=== PATIENT | female | born 1990 | race Caucasian/White ===

== ENCOUNTER → 2020-06-30 10:03 | Outpatient (CLI) | payer OTHER, SELFPAY ==
[2020-07-06 20:14] LABS: HPV Reflexed? NOT INDICATED
== END ==
PROVIDERS: Visit Provider Obstetrics & Gynecology
DX: Z12.4 Encounter for screening for malignant neoplasm of cervix (principal)
CPT/HCPCS: 88175; G0145

== ENCOUNTER → 2020-07-06 09:15 | Outpatient (CLI) | payer OTHER, SELFPAY ==
[2020-07-06 10:05] LABS: Absolute Neutrophil Count 2.2 X10^3/uL (2.0-7.7); Basophil# 0.03 X10^3/uL; Basophil% 0.7 % (0-1); Eosinophil# 0.21 X10^3/uL; Eosinophils% 4.7 % (0-5); Hematocrit 40.2 % (37-47); Lymphocyte % 37.9 % (19-41); Mean Corp Hgb Conc 32.3 g/dL (32-36); Mean Corpuscular Hgb 28.1 pg (27.0-32.0); Mean Platelet Vol. 9.8 fl (6.2-12.0); Monocyte# 0.39 X10^3/uL; Monocyte% 8.7 % (0-10); NRBC Flagged by Analyzer 0 % (0-5); Neutrophil # 2.16 X10^3/uL (2.7-7.7); Platelet Count 251 K/mm3 (150-450); RBC Distribution Width CV 12.2 % (11.6-14.6); RBC Distribution Width SD 39.3 fl (35.1-43.9); Red Blood Count 4.62 M/mm3 (4.2-5.4); White Blood Count 4.5 K/mm3 (4.4-11.0)
[2020-07-06 10:32] LABS: Vitamin B12 501 pg/mL (211-911); Vitamin D,25 Hydroxy 40.3 ng/mL
[2020-07-06 11:17] LABS: Glucose 83 mg/dL (74-106)
[2020-07-06 11:18] LABS: ALB/GLOB Ratio 0.9 RATIO (0.9-2.4); AST(SGOT) 8 U/L (15-37); Alanine Aminotransfer ALT/SGPT 18 U/L (13-56); Albumin, Serum 3.5 g/dL (3.2-5.0); Alkaline Phosphatase 63 U/L (45-117); Anion Gap 5 (5-15); BUN 12 mg/dL (7-18); Calcium,Total 8.8 mg/dL (8.5-10.1); Chloride 109 mmol/L (98-107); Globulin 3.8 g/dL (2.2-4.2); Protein, Total 7.3 g/dL (6.4-8.2); Sodium Level 141 mmol/L (136-145); Thyroid Stim Hormone (TSH) 0.93 uIU/mL (0.358-3.74)
[2020-07-06 11:20] LABS: BUN/Creat Ratio 15.3 RATIO (10-20); Creatinine, Serum 0.78 mg/dL (0.55-1.02); EST Glomerular Filtration Rate 92 mL/min (>60); Est Glom Filt Rate - Afr Amer 111 mL/min (>60)
== END ==
PROVIDERS: PCP Family Medicine; Referring Provider Family Medicine; Visit Provider Family Medicine
DX: R53.83 Other fatigue (principal)
CPT/HCPCS: 36415; 80053; 82306; 82607; 82746; 84443; 85025

== ENCOUNTER → 2021-02-21 10:44 | Outpatient (CLI) | payer OTHER, SELFPAY ==
[2021-02-21 12:07] LABS: Color, Urine Yellow (Yellow); Glucose, Dipstick Normal (Normal); Ketone-Dipstick Negative (Negative); Leukocyte Esterase-Dipstick Negative /ul (Negative); Nitrite-Dipstick Negative (Negative); Occult Blood-Urine Negative /ul (Negative); Protein-Dipstick Negative (Negative); Urine Bilirubin Dipstick Negative (Negative); Urine Clarity Clear (Clear); Urine Urobilinogen Normal (Normal); Urine pH 6.5 (5.0 - 8.0)
[2021-02-21 12:09] LABS: Absolute Lymphocyte Count 0.96 X10^3/uL (0.83-4.51); Absolute Neutrophil Count 4.3 X10^3/uL (2.0-7.7); Basophil# 0.04 X10^3/uL; Basophil% 0.7 % (0-1); Eosinophil# 0.21 X10^3/uL; Eosinophils% 3.4 % (0-5); Hematocrit 40.1 % (37-47); Hemoglobin 12.9 g/dL (12.0-15.0); Lymphocyte # 0.96 X10^3/ul (0.83-4.51); Lymphocyte % 15.6 % (19-41); Mean Corp Hgb Conc 32.2 g/dL (32-36); Mean Corpuscular Hgb 27.2 pg (27.0-32.0); Mean Corpuscular Volume 84.6 fL (81-99); Monocyte# 0.66 X10^3/uL; Monocyte% 10.7 % (0-10); NRBC Flagged by Analyzer 0 % (0-5); Neutrophil # 4.25 X10^3/uL (2.7-7.7); Neutrophil % 69.3 % (47-70); Platelet Count 268 K/mm3 (150-450); RBC Distribution Width CV 12.7 % (11.6-14.6); RBC Distribution Width SD 39.1 fl (35.1-43.9); Red Blood Count 4.74 M/mm3 (4.2-5.4); White Blood Count 6.1 K/mm3 (4.4-11.0)
[2021-02-21 12:20] LABS: Amphetamine Urine VISTA NEGATIVE (<1000 ng/mL); Barbiturate Urine VISTA NEGATIVE (< 200 ng/mL); Benzodiazepine Urine VISTA NEGATIVE (< 200 ng/mL); Cocaine Urine VISTA NEGATIVE (< 300 ng/mL); Ecstacy Urine VISTA NEGATIVE (< 500 ng/mL); Methadone Urine VISTA NEGATIVE (< 300 ng/mL); PCP Urine VISTA NEGATIVE (< 25 ng/mL); THC Urine VISTA NEGATIVE (< 50 ng/mL); Vista UDS pH Range 6
[2021-02-21 12:33] LABS: Thyroid Stim Hormone (TSH) 0.83 uIU/mL (0.358-3.74)
[2021-02-21 13:01] LABS: HIV - WCH Non-Reactive (Nonreactive); Hepatitis B Surface Antigen Non-Reactive (Nonreactive); Hepatitis C Antibody Non-Reactive (Nonreactive); Rubella IgG Reactive (Nonreactive); Syphilis Antibodies Non-reactive
[2021-02-23 03:07] LABS: Chlamydia By Nucleic Acid AMP Negative (Negative)
[2021-02-23 13:22] LABS: Gonococcus By Nucleic Acid AMP Negative (Negative)
== END ==
PROVIDERS: PCP Family Medicine; Visit Provider Obstetrics & Gynecology
DX: Z34.81 Encounter for supervision of other normal pregnancy, first trimester (principal)
CPT/HCPCS: 36415; 80307; 81002; 84443; 85025; 86703; 86762; 86780; 86803; 87340; 87491; 87591

== ENCOUNTER → 2021-03-22 15:37 | Outpatient (CLI) | payer OTHER, SELFPAY | PROVIDERS: PCP Family Medicine; Visit Provider Obstetrics & Gynecology | DX: Z34.81 Encounter for supervision of other normal pregnancy, first trimester (principal); Z83.49 Family history of other endocrine, nutritional and metabolic diseases | CPT/HCPCS: 36415; 81220 ==

== ENCOUNTER → 2021-07-26 15:08 | Outpatient (CLI) | payer OTHER, SELFPAY ==
[2021-07-26 15:27] LABS: Hematocrit 30.9 % (37-47); Hemoglobin 9.8 g/dL (12.0-15.0); Mean Corp Hgb Conc 31.7 g/dL (32-36); Mean Corpuscular Hgb 26.8 pg (27.0-32.0); Mean Corpuscular Volume 84.7 fL (81-99); Mean Platelet Vol. 10.1 fl (6.2-12.0); Platelet Count 220 K/mm3 (150-450); RBC Distribution Width CV 12.9 % (11.6-14.6); RBC Distribution Width SD 39.1 fl (35.1-43.9); Red Blood Count 3.65 M/mm3 (4.2-5.4); White Blood Count 7.4 K/mm3 (4.4-11.0)
[2021-07-26 16:02] LABS: Glucose Challenge Gest 1H 50g 121 mg/dL (70-140)
[2021-07-28 10:35] LABS: Ferritin 5 ng/mL (8-252)
== END ==
PROVIDERS: PCP Family Medicine; Visit Provider Obstetrics & Gynecology
DX: Z34.83 Encounter for supervision of other normal pregnancy, third trimester (principal); D64.9 Anemia, unspecified
CPT/HCPCS: 36415; 82728; 82950; 85027

== ENCOUNTER → 2021-08-23 16:36 | Outpatient (CLI) | payer OTHER, SELFPAY ==
[2021-08-23 17:17] LABS: Hematocrit 30.8 % (37-47); Hemoglobin 9.5 g/dL (12.0-15.0)
[2021-08-23 18:14] LABS: Ferritin 5 ng/mL (8-252)
[2021-08-24 08:42] LABS: Syphilis Antibodies Non-reactive
== END ==
PROVIDERS: PCP Family Medicine; Visit Provider Obstetrics & Gynecology
DX: Z34.83 Encounter for supervision of other normal pregnancy, third trimester (principal)
CPT/HCPCS: 36415; 82728; 85014; 85018; 86780

== ENCOUNTER 2021-09-16 16:30 | Outpatient (CLI) | payer OTHER, SELFPAY | END 2021-09-16 23:59 | disposition short-term general hospital (02) | LOC: LABSPEC 16:32 | PROVIDERS: PCP Family Medicine; Visit Provider Obstetrics & Gynecology | DX: Z03.818 Encounter for observation for suspected exposure to other biological agents ruled out (principal) | CPT/HCPCS: 87081; 87635; U0003; U0005 ==

== ENCOUNTER 2021-09-23 05:00 | Inpatient (IN) | payer OTHER, SELFPAY ==
[2021-09-23] VITALS (15 sets, daily range): BP systolic 87–106; BP diastolic 43–68; PULSE 71–94; RESP 12–20; TEMP 35.9–37.2; O2SAT 96–100; BMI 31.6
[2021-09-23] MEDS: Lactated Ringers 1,000 ML 999 ML IV (05:40)
[2021-09-23 05:58] LABS: Absolute Lymphocyte Count 1.87 X10^3/uL (0.83-4.51); Absolute Neutrophil Count 5.8 X10^3/uL (2.0-7.7); Basophil# 0.04 X10^3/uL; Basophil% 0.5 % (0-1); Eosinophil# 0.29 X10^3/uL; Eosinophils% 3.4 % (0-5); Hematocrit 32.7 % (37-47); Hemoglobin 10.4 g/dL (12.0-15.0); Lymphocyte # 1.87 X10^3/ul (0.83-4.51); Lymphocyte % 21.7 % (19-41); Mean Corp Hgb Conc 31.8 g/dL (32-36); Mean Corpuscular Hgb 26.1 pg (27.0-32.0); Mean Corpuscular Volume 82.2 fL (81-99); Monocyte# 0.61 X10^3/uL; Monocyte% 7.1 % (0-10); NRBC Flagged by Analyzer 0 % (0-5); Neutrophil # 5.77 X10^3/uL (2.7-7.7); Neutrophil % 66.8 % (47-70); Platelet Count 208 K/mm3 (150-450); RBC Distribution Width SD 47.4 fl (35.1-43.9); Red Blood Count 3.98 M/mm3 (4.2-5.4); White Blood Count 8.6 K/mm3 (4.4-11.0)
[2021-09-23] MEDS: Acetaminophen 500 MG Tablet 1000 MG PO ×3 (06:24→18:05)
[2021-09-23] MEDS: Lactated Ringers 1,000 ML 150 ML IV (06:41)
[2021-09-23] MEDS: Sodium Citrate/Citric Acid 30 ML UDC PO (07:18)
--- NOTE | 2021-09-23 07:30 | PCM.HP.OB ---
HPI - General General Date of Admission: 09/23/21 Date of Service: 09/23/21 HPI Narrative DEVORA GOLDEN, is a 31 F who presents for scheduled repeat section at 37 3/7 weeks gestation for hx prior section with T-incision. Maternal Data Information SEAN Calculator Estimated Delivery Date Method Current WG Current Estimate 10/11/21 LMP (Certain) 38w 4d PFSH PFSH Medical History (Updated 10/01/21 @ 02:[address] Thelma Pineda MD) Anxiety Asthma Bicornuate uterus Cystic fibrosis carrier Seasonal allergies Home Medications Proair Digihaler 1 dose MISCELLANEOUS PRN PRN 09/23/21 [History Last Taken 09/22/21 20:00] Zyrtec 10 mg PO DAILY 09/23/21 [History Last Taken Unknown] iron 18 mg PO DAILY 09/23/21 [History Last Taken Unknown] zhjjxrkm-yll-Ox-FA 1 tab PO DAILY 09/23/21 [History Last Taken 09/22/21 08:00] oxycodone 5 mg PO Q6H PRN 4 Days #16 tab 09/24/21 [Rx Last Taken Unknown] nystatin 1 applic TOPICAL BID 7 Days #30 g 09/25/21 [Rx Last Taken Unknown] Allergy/AdvReac Type Severity Reaction Status Date / Time No Known Allergies Allergy Verified 09/23/21 05:46 Family History (Updated 09/23/21 @ 07:[address] Thelam Pineda MD) Sister Cystic fibrosis Surgical History (Updated 09/23/21 @ 07:[address] Thelma Pineda MD) Previous section Social History Smoking Status: Never smoker History 2 Elective abortions Hx Para 1 Spontaneous abortions Hx # Term Pregnancies 1 Ectopic pregnancies Hx # Pregnancies Multiple births # of living children 1 Past Pregnancies Del. Date Name GA/Weeks Outcome Route Bth Weight Gen Labor Lgth Anesthesia Del Locatn Provider FOB Unknown Josep 38 live - full term 5lb 10oz Male 0 epidural Wood Kirill Delivery Date: breech, T-incision Thelma Polanco NST FHR Rate Baby A Baseline: 140 Vital Signs Vital Signs Vital Signs: 09/23/21 05:22 Temperature 97.9 F Temperature Source Temporal Pulse Rate 94 Respiratory Rate 16 Blood Pressure 106/67 Blood Pressure Mean 80 Blood Pressure Source Monitor Blood Pressure Position Semi-Fowlers Blood Pressure Location Left Arm Pulse Ox 98 Oxygen Delivery Method Room Air Weight Weight: 80.966 kg Body Mass Index (BMI) 31.6 Physical Exam Const alert, oriented x3 and no apparent distress HEENT normocephalic Resp normal respiratory effort, normal air movement and clear to auscultation bilaterally Cardio regular rate and regular rhythm GI normal to inspection, nondistended, normoactive bowel sounds, soft to palpation, non-tender and non-distended Inspection: gravid Labs Labs Labs: Blood Type O POSITIVE Antibody Screen NEGATIVE Hct 27.8 % (37-47) L Hgb 8.8 g/dL (12.0-15.0) L Syphilis Total Ab Non-reactive Rubella IgG Antibody Reactive (Nonreactive) Hep Bs Antigen Non-Reactive (Nonreactive) Neisseria gonorrhoeae DNA (JUAN CARLOS) Negative (Negative) HIV 1&2 Antibody Non-Reactive (Nonreactive) Glucose 1 Hr 50 gm 121 mg/dL (70-140) Rhogam given: No Assessment & Plan (1) 37 weeks gestation of : COMMENT: hx prior section with T incision PLAN: Proceed with repeat section Tubal sterilization as planned
[2021-09-23] MEDS: Cefazolin 2 GM in 0.9% Normal Saline 100 ML IV (07:37)
--- NOTE | 2021-09-23 08:00 | FALS_PTH ---
PATIENT: DEVORA GOLDEN LOC: [facility] U#:[id number] AGE/SX: 31/F ROOM: [facility]003 RE09/23/[address]: Dr. Thelma Pineda MD : 1990 BED: 1 DIS: 09/26/2021 SPEC #: [id number] RECD: 09/23/21 10:14 STATUS: MARTHA REFern #: [id number] SARA: 09/23/21 08:[address]: Thelma Story DEPT: SURGICAL PATHOLOGY RECD BY: Jane Tse ENTERED: 09/23/21 12:31 SP TYPE: FALL TUBES OTHR DR: Dr. Robert Olmedo MD Tissues: Fallopian tube Procedures: Surgery Specimen Level II HEADER OPERATION: Tubal ligation PRE-OP DIAGNOSIS: Sterilization TISSUE SUBMITTED: Fallopian tubes, suture in left tube MICROSCOPIC DIAGNOSIS Right fallopian tube, salpingectomy: Complete segment of fallopian tube with no pathologic change. Left fallopian tube, salpingectomy: Complete segment of fallopian tube. Benign paratubal cyst. AM:cain 09/26/2021 MICROSCOPIC DESCRIPTION Slides are reviewed. GROSS DESCRIPTION Received in fixative is one container labeled with the patient's name and designated bilateral fallopian tubes, left side stitch. The specimen consists of bilateral fallopian tubes including fimbrial ends. The right fallopian tube measures 9 cm in length and up to 1 cm in diameter and the left fallopian tube measures 7.5 cm in length and 1 cm in diameter. The left fallopian tube also shows a paratubal cyst measuring 1 cm in greatest dimension. Sections reveal unremarkable cut surfaces. Solution Consultant sections are submitted in two cassettes as follows: 1 ? right fallopian tube, 2 ? left fallopian tube and paratubal cyst. / SJ:cain 09/23/2021 TC:5 CPT: 26521 x2
--- NOTE | 2021-09-23 08:46 | EX.PCM.OBRPT ---
Assessment & Plan (1) 37 weeks gestation of : COMMENT: hx prior section with T incision (2) delivery delivered: Maternal Data Information SEAN Calculator Estimated Delivery Date Method Current WG Current Estimate 10/11/21 LMP (Certain) 37w 3d Details Operative Information Date of Procedure: 09/23/21 Pre-Operative Diagnosis: 37-3/7 weeks gestation History of prior section with T-incision Bicornuate uterus Tubal sterilization desired Post-Operative Diagnosis: 37-3/7 weeks gestation History of prior section with T-incision Bicornuate uterus Tubal sterilization desired Indications for : Repeat Elective and Previous Uterine Surgery (T-incision at prior section) Classification: Scheduled Procedure Type: low transverse risk compliance manager #1: Chriss Hein Type of Anesthesia: Spinal Anesthesiologist: Corby Olivares Antibiotic Given: Ancef 2 grams IV x1 Drain: Kovacs to straight drain Estimated Blood Loss: 900 mL Fluids Replaced: 800 mL Findings Description of Procedure: Indications: 31-year-old 2 para 1-0-0-1 admitted at 37-3/7 weeks gestational age for scheduled repeat section. History of prior section in setting of bicornuate uterus requiring a T-incision. She is counseled regarding procedural risks, benefits, indications and alternatives and opted to proceed. Procedure: The patient was brought to the operating room and spinal was performed. Spinal analgesia was administered and she was placed into dorsal supine position with left lateral tilt. The abdomen and perineum were prepped and the Kovacs catheter was placed. Patient was draped in sterile fashion and the spine was found to be adequate. A Pfannenstiel incision was made using the scalpel and brought down to incise the subcutaneous tissue rectus fascia at the midline. The fascial incision was extended laterally and cephalad sharply. Amari clamps were used to dissect the superior and inferior leaflets of the rectus fascia from the underlying rectus abdominis muscle. The rectus muscles were at the midline and peritoneum entered bluntly and a bladder blade placed into the abdominal cavity. The vesicouterine peritoneal fold was identified and incised with creation of a bladder flap. A hysterotomy was performed using the Metzenbaum scissors with amniotomy revealing clear fluid. The head was brought to the level of the hysterotomy and delivered and bulb suction of the mouth and nares was performed. A vigorous male infant delivered from the right horn of the uterus. The cord was doubly clamped and cut after 1 minute of life. The placenta was expressed from the uterus and exteriorized. The hysterotomy was repaired using 0 Vicryl running lock suture. Second indicating layer of horizontal mattress sutures were placed with good hemostasis. I proceeded with salpingectomy. The right tubal fimbria was identified and isolated. The mesosalpinx was transected from the tube using the LigaSure device. In similar fashion left salpingectomy was also performed. The uterus and adnexa a were returned to the abdomen. Peritoneum was reapproximated using 2-0 Vicryl. Rectus fascia was reapproximated using oh strata fix running suture. Subcutaneous tissue was reapproximated using 2-0 Vicryl. The skin was closed with 4-0 Monocryl by the SUPERVISING FILM OR VIDEOTAPE EDITOR under my supervision. Mepilex occlusive dressing was placed over the incision. The procedure was complete and the patient will be transferred to the recovery room. Sponge and needle counts are correct x2. Male infant, 7 pounds 3 ounces. Presentation: Positive for Vertex Amniotic Membrane Rupture Type: Artificial Amniotic Fluid Description: Clear Placental Delivery Description: Spontaneous Placenta Disposition: [facility] Cord Vessel Description: 3 Vessels Cord Entanglement: None Nuchal Cord Compression: Without compression A Gender: Male (1 minute): 7 (5 minute): 9 Delayed Cord Clamping: Yes Complications Risks of Surgery Discussed w/Patient: Bleeding, Anesthesia Risks, Infection, Permanency, Failure Rate of 1 to 2%, Injury to surrounding structure(s) including bowel and bladder and Availability of other non-permanent control options
[2021-09-23] MEDS: Oxytocin 30 units/NS 500 ml 30 UNITS/500 ML IV.SOLN 167 UNITS IV (09:20)
[2021-09-23] MEDS: Ketorolac 30 MG/ML Syringe IV ×3 (09:56→22:26)
[2021-09-23 10:15] LABS: Pathology Specimen OB SEE PATHOLOGY REPORT
[2021-09-23] MEDS: Lactated Ringers 1,000 ML 100 ML IV (12:07)
[2021-09-23] MEDS: 0.9% Saline Lock 10 ML Syringe IV (16:02)
[2021-09-24] MEDS: Acetaminophen 500 MG Tablet 1000 MG PO ×4 (00:15→18:49)
[2021-09-24 00:17] VITALS: BP 95/48; PULSE 81; RESP 16; TEMP 36.4
[2021-09-24 04:05] VITALS: BP 100/48; PULSE 82; RESP 18
[2021-09-24] MEDS: Ketorolac 30 MG/ML Syringe IV (04:08)
[2021-09-24 06:24] LABS: Hematocrit 27.8 % (37-47); Hemoglobin 8.8 g/dL (12.0-15.0); Mean Corp Hgb Conc 31.7 g/dL (32-36); Mean Platelet Vol. 10.9 fl (6.2-12.0); Platelet Count 194 K/mm3 (150-450); RBC Distribution Width CV 16.3 % (11.6-14.6); RBC Distribution Width SD 48.1 fl (35.1-43.9); Red Blood Count 3.39 M/mm3 (4.2-5.4); White Blood Count 10.6 K/mm3 (4.4-11.0)
[2021-09-24 08:20] VITALS: BP 111/63; PULSE 80; RESP 16; TEMP 36.8; O2SAT 97
--- NOTE | 2021-09-24 09:02 | PCM.PN.OB ---
Subjective Subjective Patient doing well. Able to now ambulate well. Voiding spontaneously. Baby is in special care nursery for respiratory distress. Per his RN they will try sustainable design consultant today and weaning his fluids, may need supplementation. Objective Data Objective Data Vital Signs: Vital Signs Temp Pulse Resp BP Pulse Ox 98.2 F 80 16 111/63 97 09/24/21 08:20 09/24/21 08:20 09/24/21 08:20 09/24/21 08:20 09/24/21 08:20 Oxygen Delivery Method Room Air Weight: 80.966 kg Body Mass Index (BMI) 31.6 Intake & Output: Intake and Output for Last 24 Hours 09/22/21 09/23/21 09/24/21 23:59 23:59 23:59 Intake Total 2932.83 / 2932.83 Output Total 1300 / 1300 450 / 450 Balance 1632.83 / 1632.83 -450 / -450 Lab / Micro Data Result Diagrams: 09/24/21 06:13 Labs: Laboratory Results - last 24 hr 09/24/21 06:13: WBC 10.6, RBC 3.39 L, Hgb 8.8 L, Hct 27.8 L, MCV 82.0, MCH 26.0 L, MCHC 31.7 L, RDW Std Deviation 48.1 H, RDW Coeff of Britney 16.3 H, Plt Count 194, MPV 10.9 Physical Exam Const alert, oriented x3 and no apparent distress HEENT normocephalic Head and Scalp: atraumatic Neck full ROM Resp normal respiratory effort Cardio regular rate GI normal to inspection, nondistended, normoactive bowel sounds GI Narrative: Uterus 2 cm below umbilicus. Dressing clean and dry. Back/Spine normal ROM Extremity normal to inspection Extremity Narrative: Minimal pedal edema Neuro no focal motor deficits and no sensory deficits noted Psych mental status grossly normal and affect normal Assessment & Plan (1) delivery delivered: PLAN: Postoperative day 1 status post repeat section and bilateral salpingectomy. Pain well controlled. Baby in special care. Acute blood loss anemia secondary to surgery. Iron supplement on discharge. Likely discharge home tomorrow as baby is in special care nursery. (2) Acute blood loss as cause of postoperative anemia:
--- NOTE | 2021-09-24 09:04 | DCINST_ITS ---
Discharge Instructions Diet Discharge Diet: No restrictions Activity Discharge Activity: Return to Normal Activity and May Shower May resume sexual activity in: 4-6 weeks Weight Bearing Status: Weight bearing as tolerated Lifting Restrictions: No greater than 25 pounds Dressing / Incision Call your doctor if your incision/area has: Continuous Slow Oozing, Sudden Increased Bleeding, Increased Pain/ Swelling, Increased Redness and Foul Smelling Discharge Call your doctor if you observe: Fever of 101 or Higher, Change in Color, I nability to urinate, Using more than 1 pad per hour, Shortness of breath, Dizziness, Swelling in the ankles, Chest pain and Calf discomfort Remove Dressing in: 1 week Cleanse incision/area with: Soap & Water Follow Up Care Please Follow Up With: Thelma Story MD When: 2-week post operative appointment and 6-week visit Test Results: Test results from this visit will be discussed in further detail at your follow-up appointment, if applicable. Discharge Plan Admission Admit Date/Time: 09/23/21 05:00 Primary Reason for Your Visit: Repeat section Attending Provider: Thelma Story Primary Care Provider: Robert Olmedo Discharge Orders/Prescriptions Prescriptions: New oxycodone 5 mg Tablet 5 mg PO Q6H PRN (Reason: pain) 4 Days Qty: 16 RF: 0 nystatin 100,000 unit/gram Ointment 1 applic topical BID 7 Days Qty: 30 RF: 0 Continued [id number]-pdz-Mq-FA 1 mg Tablet 1 tab PO DAILY RF: 0 iron 18 mg Tablet 18 mg PO DAILY RF: 0 Zyrtec 10 mg Capsule 10 mg PO DAILY RF: 0 Proair Digihaler 1 dose miscellaneous PRN PRN (Reason: Respiratory Distress) RF: 0 Referrals / Follow Up: Robert Olmedo MD [Primary Care Provider] -
[2021-09-24] MEDS: Ibuprofen 600 MG Tablet PO ×3 (10:13→23:05)
[2021-09-24] MEDS: Senna/Docusate Sodium 1 Tablet PO (10:14)
[2021-09-24] MEDS: Enoxaparin 40 MG/0.4 ML Syringe SC (10:15)
[2021-09-24] MEDS: Loratadine 10 MG Tablet PO (10:15)
[2021-09-24] MEDS: Prenatal Vits Tablet 1 TABLET PO (12:59)
[2021-09-24 14:13] VITALS: BP 100/71; PULSE 84; RESP 16; TEMP 36.5; O2SAT 100
[2021-09-24] MEDS: oxyCODONE 5 MG Tablet PO ×2 (14:49→19:05)
[2021-09-24] MEDS: Nystatin Ointment 1 APPLIC TOPICAL ×2 (15:07→23:07)
[2021-09-24 20:05] VITALS: BP 107/71; PULSE 80; RESP 16; TEMP 36.5
[2021-09-25] MEDS: oxyCODONE 5 MG Tablet PO ×3 (00:15→14:32)
[2021-09-25] MEDS: Acetaminophen 500 MG Tablet 1000 MG PO ×4 (01:29→19:16)
[2021-09-25 01:31] VITALS: BP 109/60; PULSE 81; RESP 14; TEMP 36.7
[2021-09-25] MEDS: Ibuprofen 600 MG Tablet PO ×4 (05:11→22:18)
[2021-09-25 08:00] VITALS: BP 95/66; PULSE 89; RESP 16; TEMP 36.8; O2SAT 97
--- NOTE | 2021-09-25 09:02 | PCM.PN.OB ---
Subjective Subjective Patient ambulating in hallway. Pain controlled. Baby doing well in special care. Objective Data Objective Data Vital Signs: Vital Signs Temp Pulse Resp BP Pulse Ox 98.2 F 89 16 95/66 97 09/25/21 08:00 09/25/21 08:00 09/25/21 08:00 09/25/21 08:00 09/25/21 08:00 Oxygen Delivery Method Room Air Weight: 80.966 kg Body Mass Index (BMI) 31.6 Intake & Output: Intake and Output for Last 24 Hours 09/23/21 09/24/21 09/25/21 23:59 23:59 23:59 Intake Total 2932.83 / 2932.83 Output Total 1300 / 1300 850 / 850 Balance 1632.83 / 1632.83 -850 / -850 Lab / Micro Data Result Diagrams: 09/24/21 06:13 Physical Exam Const alert, oriented x3 and no apparent distress HEENT normocephalic Head and Scalp: atraumatic Neck full ROM Resp normal respiratory effort Cardio regular rate GI normal to inspection, nondistended, normoactive bowel sounds GI Narrative: Uterus 2 cm below umbilicus. Joann intertrigo in groin unable to be examined as patient was up in home 1. Back/Spine normal ROM Extremity normal to inspection Extremity Narrative: Minimal pedal edema Neuro no focal motor deficits and no sensory deficits noted Psych mental status grossly normal and affect normal Assessment & Plan (1) delivery delivered: PLAN: Postoperative day 2 status post repeat section and bilateral salpingectomy. Pain well controlled. Baby in special care, weaning off of glucose drip. Acute blood loss anemia secondary to surgery. Iron supplement on discharge. Joann intertrigo in inguinal region - nystatin cream. Likely discharge home tomorrow as baby is in special care nursery. (2) Other acute postprocedural pain: (3) Acute blood loss as cause of postoperative anemia:
[2021-09-25] MEDS: Senna/Docusate Sodium 1 Tablet PO (10:23)
[2021-09-25] MEDS: Prenatal Vits Tablet 1 TABLET PO (10:23)
[2021-09-25] MEDS: Loratadine 10 MG Tablet PO (10:23)
[2021-09-25] MEDS: Enoxaparin 40 MG/0.4 ML Syringe SC (10:25)
[2021-09-25] MEDS: Nystatin Ointment 1 APPLIC TOPICAL ×2 (10:28→22:19)
[2021-09-25 14:36] VITALS: BP 110/67; PULSE 86; RESP 18; TEMP 37.1; O2SAT 97
[2021-09-25 19:34] VITALS: BP 108/71; PULSE 77; RESP 18; TEMP 37.2; O2SAT 95
--- NOTE | 2021-09-25 22:28 | NURSING ---
Pt. walked independently back to [facility] without nurse standby. Pumped and was taking expressed colostrum back to [facility] when this RN met up with pt. in hallway. This RN to [facility] with pt. Pt. told [facility] RN that nobody ever showed her how to put the pump together, pump, or label breastmilk. Pt. bringing 1cc of pumped breastmilk into [facility] at this time. [facility] RN gave pt. more labels, syringes, and this RN back to room to review breast pump education. Pt. stated during education that she needed to go to bed. RN attempted to review how to put pump together. Pt. asked one question, but otherwise was walking around room throwing away trash and getting into bed. This RN told pt. to call out and also instructed how to use call champagne if pt. would like to review education at a later time. Pt. requested lights be turned off so she could go to bed after motrin and nystatin cream administered. Call champagne and phone placed on pt's bedside table and pt. encouraged to call out with any needs.
[2021-09-26] MEDS: Acetaminophen 500 MG Tablet 1000 MG PO ×2 (01:05→07:08)
[2021-09-26] MEDS: oxyCODONE 5 MG Tablet PO ×2 (02:45→11:37)
[2021-09-26 02:47] VITALS: BP 129/77; PULSE 78; RESP 18; O2SAT 96
[2021-09-26] MEDS: Ibuprofen 600 MG Tablet PO ×2 (03:47→09:02)
--- NOTE | 2021-09-26 06:07 | NURSING ---
Pt. ambulating in hallway to [facility]. States she isn't feeling well this morning. This RN asked pt. to clarify what she meant and she states her pain is 4/10. Pt. verbalizes concern of how she will sleep in her bed at home because of the pain and the fact that it does not elevate like hospital beds. Medication administration times reviewed with pt. and pt. verbalized understanding. [facility] to nurse then will call for this RN when ready for scheduled 0700 pain medication.
--- NOTE | 2021-09-26 08:49 | PCM.DC.BLA ---
Discharge Summary Date of Admission: 09/23/21 Date of Discharge: 09/26/21 Summary: Patient arrived on 09/23/2021 at 37 weeks for repeat section with history of T-incision with Dr. Katina Pineda. Routine postoperative recovery. Patient discharged home on 09/26/2021. Physical Exam Const alert, oriented x3, no apparent distress, average body habitus, no limitations and healthy appearing Neck full ROM Resp normal respiratory effort, normal air movement, no retractions and no use of accessory muscles GI GI Narrative: Abdomen soft, nontender, bandage clean dry and intact Extremity normal to inspection and full ROM Psych mental status grossly normal, thought process normal, cooperative, affect normal and speech normal Meaningful Use Info Meaningful Use Diagnoses (Choose all that apply): None applicable Discharge Plan Admission Admit Date/Time: 09/23/21 05:00 Primary Reason for Your Visit: Repeat section Attending Provider: Thelma Story Primary Care Provider: Robert Olmedo Instructions Additional Instructions / Restrictions: Okay for regular diet. No lifting over 25 pounds for 2 to 3 weeks. No tub baths for 2 weeks. No intercourse for 4 to 6 weeks. Okay to shower. Call if fevers, chest pain, shortness of breath, increased bleeding. Follow-up 2 weeks postoperatively, 4 to 6 weeks Discharge Orders/Prescriptions Prescriptions: New oxycodone 5 mg Tablet 5 mg PO Q6H PRN (Reason: pain) 4 Days Qty: 16 RF: 0 nystatin 100,000 unit/gram Ointment 1 applic topical BID 7 Days Qty: 30 RF: 0 Continued wpzftkpi-uxf-Aq-FA 1 mg Tablet 1 tab PO DAILY RF: 0 iron 18 mg Tablet 18 mg PO DAILY RF: 0 Zyrtec 10 mg Capsule 10 mg PO DAILY RF: 0 Proair Digihaler 1 dose miscellaneous PRN PRN (Reason: Respiratory Distress) RF: 0 Referrals / Follow Up: Robert Olmedo MD [Primary Care Provider] - Disposition Disposition (needs filled in before D/C Order can be placed): Home, Self Care
--- NOTE | 2021-09-26 08:52 | PN.OBGYN_ITS ---
Subjective Subjective No overnight complaints. Pain well controlled. Objective Data Objective Data Vital Signs: Vital Signs Temp Pulse Resp BP Pulse Ox 98.9 F 78 18 129/77 H 96 09/25/21 19:34 09/26/21 02:47 09/26/21 02:47 09/26/21 02:47 09/26/21 02:47 Oxygen Delivery Method Room Air Weight: 178 lb 8 oz Body Mass Index (BMI) 31.6 Intake & Output: Intake and Output for Last 24 Hours 09/24/21 09/25/21 09/26/21 23:59 23:59 23:59 Output Total 850 / 850 Balance -850 / -850 Lab / Micro Data Result Diagrams: 09/24/21 06:13 Physical Exam Const alert, oriented x3, no apparent distress, average body habitus, healthy appearing and well nourished HEENT normocephalic and moist oral mucous membranes Head and Scalp: atraumatic Face and Sinus: normal facial exam Neck full ROM Resp normal respiratory effort, no retractions and no use of accessory muscles GI GI Narrative: Soft, nontender, bandage clean dry and intact Extremity normal to inspection, full ROM and no clubbing, cyanosis or edema Psych mental status grossly normal, affect normal, speech normal and activity/motor behavior normal Assessment & Plan (1) delivery delivered: PLAN: Postoperative day 3 status post repeat section at 37 weeks for history of T-incision by Dr. Katina Pineda. Pain well controlled. Breast- feeding. Okay to discharge home today
[2021-09-26] MEDS: Enoxaparin 40 MG/0.4 ML Syringe SC (09:02)
[2021-09-26] MEDS: Nystatin Ointment 1 APPLIC TOPICAL (09:07)
[2021-09-26] MEDS: Loratadine 10 MG Tablet PO (10:31)
[2021-09-26 10:44] VITALS: BP 101/66; PULSE 88; RESP 16; TEMP 36.9; O2SAT 97
[2021-09-26] MEDS: Prenatal Vits Tablet 1 TABLET PO (11:38)
[2021-09-26] MEDS: Senna/Docusate Sodium 1 Tablet PO (11:38)
== END 2021-09-26 11:45 | disposition home or self-care (01) | DRG 785 ==
PROVIDERS: Admitting Provider Obstetrics & Gynecology; PCP Family Medicine; Visit Provider Obstetrics & Gynecology
PROC: 10D00Z1 Extraction of Products of Conception, Low, Open Approach (ICD-10-PCS; CPT 59514; principal; 2021-09-23 07:15)
DX: O34.218 Maternal care for other type scar from previous cesarean delivery (principal); B37.2 Candidiasis of skin and nail; J45.909 Unspecified asthma, uncomplicated; O90.89 Other complications of the puerperium, not elsewhere classified; O69.81X0 Labor and delivery complicated by cord around neck, without compression, not applicable or unspecified; O99.52 Diseases of the respiratory system complicating childbirth; Q51.3 Bicornate uterus; Z3A.37 37 weeks gestation of pregnancy; Z37.0 Single live birth; Z79.899 Other long term (current) drug therapy
CPT/HCPCS: 59050; 85025; 85027; 86850; 86900; 86901; 88302; 99218; 99251; J7120; A4216; G0378; G0463

== ENCOUNTER → 2022-09-27 | Outpatient (CLI) | payer OTHER, SELFPAY ==
[2022-09-27 12:27] LABS: Absolute Lymphocyte Count 1.55 X10^3/uL (0.83-4.51); Absolute Neutrophil Count 2.2 X10^3/uL (2.0-7.7); Basophil# 0.04 X10^3/uL; Basophil% 0.9 % (0-1); Eosinophil# 0.44 X10^3/uL; Eosinophils% 9.6 % (0-5); Hematocrit 40.6 % (37-47); Hemoglobin 13.1 g/dL (12.0-15.0); Lymphocyte # 1.55 X10^3/ul (0.83-4.51); Lymphocyte % 33.9 % (19-41); Mean Corp Hgb Conc 32.3 g/dL (32-36); Mean Corpuscular Hgb 27.5 pg (27.0-32.0); Mean Corpuscular Volume 85.3 fL (81-99); Monocyte# 0.36 X10^3/uL; Monocyte% 7.9 % (0-10); NRBC Flagged by Analyzer 0 % (0-5); Neutrophil # 2.17 X10^3/uL (2.7-7.7); Neutrophil % 47.5 % (47-70); Platelet Count 299 K/mm3 (150-450); RBC Distribution Width CV 12.6 % (11.6-14.6); RBC Distribution Width SD 38.9 fl (35.1-43.9); Red Blood Count 4.76 M/mm3 (4.2-5.4); White Blood Count 4.6 K/mm3 (4.4-11.0)
[2022-09-27 13:06] LABS: Hemoglobin A1c 5.1 % (3.8-5.6)
[2022-09-27 13:09] LABS: Vitamin B12 814 pg/mL (211-911)
[2022-09-27 13:40] LABS: ALB/GLOB Ratio 1.1 RATIO (0.9-2.4); AST(SGOT) 13 U/L (15-37); Alanine Aminotransfer ALT/SGPT 23 U/L (13-56); Albumin, Serum 4.1 g/dL (3.2-5.0); Alkaline Phosphatase 86 U/L (45-117); Anion Gap 8 (5-15); BUN 13 mg/dL (7-18); BUN/Creat Ratio 19.5 RATIO (10-20); Calcium,Total 9.5 mg/dL (8.5-10.1); Chloride 105 mmol/L (98-107); Cholesterol 164 mg/dL (200); Creatinine, Serum 0.66 mg/dL (0.55-1.02); EST Glomerular Filtration Rate 109 mL/min (>60); Est Glom Filt Rate - Afr Amer 132 mL/min (>60); Globulin 3.7 g/dL (2.2-4.2); Glucose 85 mg/dL (74-106); High Density Lipoprotein 39 mg/dL; Iron 81 ug/dL (50-170); Iron Binding Capacity,Total 327 ug/dL (250-450); Potassium 4.2 mmol/L (3.5-5.1); Protein, Total 7.8 g/dL (6.4-8.2); Sodium Level 141 mmol/L (136-145); T4 Free Direct 0.98 ng/dL (0.76-1.46); Thyroid Stim Hormone (TSH) 1.07 uIU/mL (0.358-3.74); Triglycerides 147 mg/dL; Very Low Density Lipoprotein 29 mg/dL (5-40)
== END | disposition home or self-care (01) ==
LOC: MFPLAB 10:05
PROVIDERS: PCP Family Medicine; Visit Provider Nurse Practitioner Family
DX: Z13.220 Encounter for screening for lipoid disorders (principal); R53.83 Other fatigue
CPT/HCPCS: 36415; 80053; 80061; 82306; 82607; 83036; 83540; 83550; 84439; 84443; 85025

== ENCOUNTER → 2023-02-16 | Outpatient (CLI) | payer OTHER, SELFPAY ==
--- NOTE | 2023-02-16 10:42 | US_ITS ---
HISTORY: Mass on R medial knee. TECHNIQUE: Routine and color duplex imaging of the right knee. 33 images. FINDINGS: The right medial knee demonstrates a 9 mm x 4.6 cm x 3 cm septated fluid collection or cystic mass with peripheral increased vascularity US/Ext Non Vasc Limited/Soft Tiss IMPRESSION: 4.6 cm septated fluid collection or cystic mass of the right medial knee. Recommend correlation with CT or MRI. Electronically Signed: Liya Medrano MD at 8:44 EDT ,
--- NOTE | 2023-02-16 10:42 | US_ITS ---
HISTORY: Mass on R upper chest, bilateral upper chest. TECHNIQUE: Ramirez scale images were obtained of the chest. 23 images. COMPARISON: None. FINDINGS: The right upper and left upper chest demonstrate no focal solid or cystic mass. US/Chest IMPRESSION: Unremarkable sonographic examination of the upper chest. Recommend follow-up based on patient''s physical examination. Electronically Signed: Liya Medrano MD at 8:40 EDT ,
== END | disposition home or self-care (01) ==
LOC: US 10:41
PROVIDERS: PCP Family Medicine; Referring Provider Family Medicine; Visit Provider Family Medicine
DX: R22.2 Localized swelling, mass and lump, trunk (principal)
CPT/HCPCS: 76604; 76882

== ENCOUNTER → 2023-02-20 | Outpatient (CLI) | payer OTHER, SELFPAY ==
[2023-02-22 09:09] LABS: HPV APTIMA, High Risk Negative (Negative)
== END | disposition home or self-care (01) ==
LOC: LABSPEC 08:59
PROVIDERS: PCP Family Medicine; Visit Provider Student in an Organized Health Care Education/Training Program
DX: Z12.4 Encounter for screening for malignant neoplasm of cervix (principal)
CPT/HCPCS: 87624; 88175; G0145

== ENCOUNTER → 2023-03-14 | Outpatient (CLI) | payer OTHER, SELFPAY ==
--- NOTE | 2023-03-14 09:26 | BI_ITS ---
MAMMOGRAPHY - BILATERAL DIAGNOSTIC REASON FOR EXAM: Female, 32 years old. 2 month history of a palpable lump in the upper inner quadrant of the right breast. Recent ultrasound at that region was unremarkable. PERTINENT HISTORY: Non-contributory. TECHNIQUE: Digital bilateral breast maryln (3D mammographic acquisition) in the CC and MLO projections. 2-D mediolateral oblique (MLO) and craniocaudad (CC) views of both breasts were obtained. CAD: Full Field Digital Mammography with Computer Added Detection was performed. COMPARISON: None. Baseline examination. FINDINGS: Breast Composition: The breasts are heterogeneously dense, which may obscure small masses. There are no dominant masses or suspicious calcifications. There is asymmetry of breast tissue or minimal breast tissue is seen in the upper outer quadrant of the left breast as compared to the right side. No other significant abnormalities are identified. BI/DIAG MAMM W/CAD, BILAT IMPRESSION: Negative diagnostic mammogram. Yearly followup mammogram recommended. (A) ASSESSMENT CATEGORY: BIRADS Category 2: Benign. A letter regarding these results will be sent to the patient by the facility within 30 days. Approximately 10% of breast cancers are not detected by mammography. A normal mammogram should not delay biopsy of a clinically suspicious abnormality. Electronically Signed: Milad Saleem MD at 11:17 EDT ,
== END | disposition home or self-care (01) ==
PROVIDERS: PCP Family Medicine; Referring Provider Student in an Organized Health Care Education/Training Program; Visit Provider Student in an Organized Health Care Education/Training Program
DX: N63.12 Unspecified lump in the right breast, upper inner quadrant (principal)
CPT/HCPCS: 77062; 77066; G0279

== ENCOUNTER → 2024-04-23 | Outpatient (CLI) | payer OTHER, SELFPAY ==
[2024-04-23 17:38] LABS: Absolute Lymphocyte Count 2.49 X10^3/uL (0.83-4.51); Absolute Neutrophil Count 2.9 X10^3/uL (2.0-7.7); Basophil# 0.06 X10^3/uL; Eosinophils% 3.3 % (0-5); Hematocrit 36.8 % (37-47); Hemoglobin 10.9 g/dL (12.0-15.0); Lymphocyte # 2.49 X10^3/ul (0.83-4.51); Lymphocyte % 41.1 % (19-41); Mean Corp Hgb Conc 29.6 g/dL (32-36); Mean Corpuscular Hgb 22.3 pg (27.0-32.0); Mean Corpuscular Volume 75.3 fL (81-99); Mean Platelet Vol. 9.6 fl (6.2-12.0); Monocyte% 6.6 % (0-10); NRBC Flagged by Analyzer 0 % (0-5); Neutrophil % 47.8 % (47-70); Platelet Count 347 K/mm3 (150-450); RBC Distribution Width CV 15.4 % (11.6-14.6); RBC Distribution Width SD 41.8 fl (35.1-43.9); Red Blood Count 4.89 M/mm3 (4.2-5.4); White Blood Count 6.1 K/mm3 (4.4-11.0)
[2024-04-23 17:55] LABS: ALB/GLOB Ratio 0.9 RATIO (0.9-2.4); AST(SGOT) 18 U/L (15-37); Alanine Aminotransfer ALT/SGPT 26 U/L (13-56); Albumin, Serum 3.9 g/dL (3.2-5.0); Alkaline Phosphatase 84 U/L (45-117); Anion Gap 6 (5-15); BUN 11 mg/dL (7-18); BUN/Creat Ratio 16.4 RATIO (10-20); Chloride 104 mmol/L (98-107); Creatinine, Serum 0.67 mg/dL (0.55-1.02); EST Glomerular Filtration Rate 107 mL/min (>60); Est Glom Filt Rate - Afr Amer 129 mL/min (>60); Globulin 4.4 g/dL (2.2-4.2); Glucose 86 mg/dL (74-106); Protein, Total 8.3 g/dL (6.4-8.2); Sodium Level 137 mmol/L (136-145)
[2024-04-23 18:34] LABS: Vitamin D,25 Hydroxy 43.7 ng/mL
== END | disposition home or self-care (01) ==
LOC: MFPLAB 16:07
PROVIDERS: PCP Family Medicine; Visit Provider Family Medicine
DX: R53.83 Other fatigue (principal); R42 Dizziness and giddiness
CPT/HCPCS: 36415; 80053; 82306; 84443; 85025

== ENCOUNTER → 2024-10-16 | Outpatient (CLI) | payer OTHER, SELFPAY ==
[2024-10-16 17:43] LABS: Absolute Lymphocyte Count 2.11 X10^3/uL (0.83-4.51); Absolute Neutrophil Count 2.9 X10^3/uL (2.0-7.7); Basophil# 0.07 X10^3/uL; Basophil% 1.2 % (0-1); Eosinophil# 0.25 X10^3/uL; Eosinophils% 4.3 % (0-5); Hematocrit 37.6 % (37-47); Hemoglobin 12.3 g/dL (12.0-15.0); Lymphocyte # 2.11 X10^3/ul (0.83-4.51); Lymphocyte % 36.4 % (19-41); Mean Corp Hgb Conc 32.7 g/dL (32-36); Mean Corpuscular Volume 85.5 fL (81-99); Mean Platelet Vol. 10.2 fl (6.2-12.0); Monocyte# 0.47 X10^3/uL; Monocyte% 8.1 % (0-10); NRBC Flagged by Analyzer 0 % (0-5); Neutrophil # 2.89 X10^3/uL (2.7-7.7); Neutrophil % 49.8 % (47-70); Platelet Count 304 K/mm3 (150-450); RBC Distribution Width SD 40.2 fl (35.1-43.9); White Blood Count 5.8 K/mm3 (4.4-11.0)
[2024-10-16 18:15] LABS: ALB/GLOB Ratio 0.9 RATIO (0.9-2.4); AST(SGOT) 15 U/L (15-37); Alanine Aminotransfer ALT/SGPT 23 U/L (13-56); Albumin, Serum 3.6 g/dL (3.2-5.0); Alkaline Phosphatase 70 U/L (45-117); Anion Gap 8 (5-15); BUN 18 mg/dL (7-18); BUN/Creat Ratio 25.8 RATIO (10-20); Calcium,Total 8.7 mg/dL (8.5-10.1); Chloride 105 mmol/L (98-107); EST Glomerular Filtration Rate 102 mL/min (>60); Est Glom Filt Rate - Afr Amer 123 mL/min (>60); Ferritin 9 ng/mL (8-252); Globulin 3.8 g/dL (2.2-4.2); Glucose 85 mg/dL (74-106); Iron 37 ug/dL (50-170); Iron Binding Capacity,Total 294 ug/dL (250-450); PERCENT IRON SATURATION 12.6 % (15.0-55.0); Potassium 3.7 mmol/L (3.5-5.1); Protein, Total 7.4 g/dL (6.4-8.2); Sodium Level 138 mmol/L (136-145)
[2024-10-16 18:22] LABS: Hemoglobin A1c 4.2 % (3.8-5.6)
== END | disposition home or self-care (01) ==
LOC: MFPLAB 16:12
PROVIDERS: PCP Family Medicine; Referring Provider Family Medicine; Visit Provider Family Medicine
DX: D64.9 Anemia, unspecified (principal); Z13.1 Encounter for screening for diabetes mellitus; R20.0 Anesthesia of skin
CPT/HCPCS: 36415; 80053; 82533; 82728; 83036; 83540; 83550; 85025

== ENCOUNTER → 2024-11-25 | Outpatient (CLI) | payer OTHER, SELFPAY ==
[2024-11-25 18:25] LABS: Absolute Lymphocyte Count 1.84 X10^3/uL (0.83-4.51); Absolute Neutrophil Count 2.6 X10^3/uL (2.0-7.7); Basophil# 0.02 X10^3/uL; Basophil% 0.4 % (0-1); Eosinophil# 0.18 X10^3/uL; Eosinophils% 3.6 % (0-5); Hematocrit 35.4 % (37-47); Hemoglobin 11.7 g/dL (12.0-15.0); Lymphocyte # 1.84 X10^3/ul (0.83-4.51); Lymphocyte % 36.7 % (19-41); Mean Corp Hgb Conc 33.1 g/dL (32-36); Mean Corpuscular Hgb 28.6 pg (27.0-32.0); Mean Corpuscular Volume 86.6 fL (81-99); Mean Platelet Vol. 10.5 fl (6.2-12.0); Monocyte# 0.37 X10^3/uL; Monocyte% 7.4 % (0-10); NRBC Flagged by Analyzer 0 % (0-5); Neutrophil # 2.59 X10^3/uL (2.7-7.7); Neutrophil % 51.5 % (47-70); Platelet Count 228 K/mm3 (150-450); RBC Distribution Width CV 13.7 % (11.6-14.6); RBC Distribution Width SD 42.3 fl (35.1-43.9); Red Blood Count 4.09 M/mm3 (4.2-5.4)
[2024-11-25 19:12] LABS: Iron 53 ug/dL (50-170)
== END | disposition home or self-care (01) ==
LOC: MFPLAB 15:50
PROVIDERS: PCP Family Medicine; Referring Provider Family Medicine; Visit Provider Family Medicine
DX: D64.9 Anemia, unspecified (principal)
CPT/HCPCS: 36415; 83540; 84443; 85025

== ENCOUNTER → 2024-12-12 | Outpatient (CLI) | payer OTHER, SELFPAY ==
[2024-12-12 17:50] LABS: Absolute Lymphocyte Count 2.12 X10^3/uL (0.83-4.51); Absolute Neutrophil Count 3.1 X10^3/uL (2.0-7.7); Basophil# 0.04 X10^3/uL; Basophil% 0.7 % (0-1); Eosinophil# 0.17 X10^3/uL; Eosinophils% 2.9 % (0-5); Hematocrit 39.4 % (37-47); Lymphocyte # 2.12 X10^3/ul (0.83-4.51); Lymphocyte % 36.4 % (19-41); Mean Corpuscular Hgb 28.6 pg (27.0-32.0); Mean Corpuscular Volume 86.8 fL (81-99); Mean Platelet Vol. 10.6 fl (6.2-12.0); Monocyte# 0.44 X10^3/uL; Monocyte% 7.5 % (0-10); NRBC Flagged by Analyzer 0 % (0-5); Neutrophil # 3.05 X10^3/uL (2.7-7.7); Neutrophil % 52.3 % (47-70); Platelet Count 255 K/mm3 (150-450); RBC Distribution Width CV 13.5 % (11.6-14.6); RBC Distribution Width SD 43.2 fl (35.1-43.9); Red Blood Count 4.54 M/mm3 (4.2-5.4); White Blood Count 5.8 K/mm3 (4.4-11.0)
[2024-12-12 18:19] LABS: Ferritin 150 ng/mL (22-378); Iron 42 ug/dL (50-170); Iron Binding Capacity,Unsat 162 ug/dL (228-428)
[2024-12-12 18:57] LABS: Iron Binding Capacity,Total 204 ug/dL (250-450)
== END | disposition home or self-care (01) ==
LOC: MFPLAB 15:58
PROVIDERS: PCP Family Medicine; Referring Provider Family Medicine; Visit Provider Family Medicine
DX: D64.9 Anemia, unspecified (principal)
CPT/HCPCS: 36415; 82728; 83540; 83550; 85025

== ENCOUNTER → 2025-01-17 | Outpatient (CLI) | payer OTHER, SELFPAY ==
[2025-01-17 08:14] LABS: Hematocrit 38.4 % (37-47); Hemoglobin 12.9 g/dL (12.0-15.0); Mean Corp Hgb Conc 33.6 g/dL (32-36); Mean Corpuscular Hgb 29.3 pg (27.0-32.0); Mean Corpuscular Volume 87.3 fL (81-99); Platelet Count 247 K/mm3 (150-450); RBC Distribution Width CV 13.2 % (11.6-14.6); White Blood Count 3.5 K/mm3 (4.4-11.0)
[2025-01-17 08:30] LABS: Internal QC Validated? YES +Cl - CLEAR BKGD; Pregnancy, Serum, hCG Quali. NEGATIVE Negative
[2025-01-17 08:53] LABS: Anion Gap 10 (5-15); BUN 12 mg/dL (4-19); BUN/Creat Ratio 17.2 RATIO (10-20); Calcium,Total 9.2 mg/dL (7.6-11.0); Carbon Dioxide 24.9 mmol/L (21.0-32.0); Chloride 105 mmol/L (98-108); EST Glomerular Filtration Rate 116 (>60); Glucose 93 mg/dL (70-99); Potassium 3.9 mmol/L (3.3-5.1); Sodium Level 139 mmol/L (133-145)
== END | disposition home or self-care (01) ==
LOC: LAB 07:09
PROVIDERS: PCP Family Medicine; Referring Provider Family Medicine; Visit Provider Family Medicine
DX: R42 Dizziness and giddiness (principal)
CPT/HCPCS: 36415; 80048; 84703; 85027

== ENCOUNTER → 2025-01-20 | Outpatient (CLI) | payer OTHER, SELFPAY ==
--- NOTE | 2025-01-21 17:24 | PCM.TILTTABL ---
Staff Staff: Mica Beckman and Casandra Choudhary Summary Pre Test Resting HR: 73 Pre Test Resting BP: 115/77 Minimum Test HR: 70 Maximum Test HR: 81 Minimum Test BP: 99/68 Maximum Test BP: 107/63 Physician Tilt Table Report Patient's Physicians Primary Care Physician: Cornell Anaya Indications/Diagnosis: Syncope Procedure Comments: Patient presented to the noninvasive lab in the postabsorptive nonsedated state. Informed consent was obtained. Initial EKG demonstrated sinus rhythm with a rate of 71 bpm and sinus rhythm. Initial blood pressure was 115/75 mmHg. The patient was then placed in the 70 degree head upright tilt position for a total duration of 30 minutes. The patient maintained sinus rhythm with normal blood pressures as noted above. Occasional episodes of dizziness and lightheadedness were noted with no significant changes in blood pressure or heart rate. After the appropriate duration patient was put back in the recumbent position with no further symptoms. Summary: Negative head upright tilt table test.
[2025-01-21 17:26] VITALS: BP 107/63; BP 115/77; BP 99/68
== END | disposition home or self-care (01) ==
PROVIDERS: PCP Family Medicine; Referring Provider Family Medicine; Visit Provider Family Medicine
DX: R42 Dizziness and giddiness (principal)
CPT/HCPCS: 93660; A4216